=== PATIENT | female | born 2000 ===

== ENCOUNTER → 2020-07-08 | Outpatient (CLI) | payer OTHER | LOC: LAB 18:29 → LAB SHORT 18:29 | DX: R30.0 Dysuria (principal) | CPT/HCPCS: 87077; 87086; 87186 ==

== ENCOUNTER → 2021-08-11 | Outpatient (CLI) | payer OTHER | END | disposition home or self-care (01) | LOC: LAB 14:30 → LAB SHORT 14:30 | DX: R30.0 Dysuria (principal) | CPT/HCPCS: 87077; 87086; 87186 ==

== ENCOUNTER → 2023-02-21 | Outpatient (CLI) | payer OTHER | LOC: LAB SHORT 17:26 → LAB 17:26 | DX: R30.0 Dysuria (principal) | CPT/HCPCS: 87077; 87086; 87186 ==